=== PATIENT | male | born 1960 | race Caucasian/White ===

== ENCOUNTER 2022-08-05 13:17 | Outpatient (REF) | payer BC, SELFPAY | END 2022-08-05 13:18 | disposition home or self-care (01) | LOC: HO.BBR 13:17 | PROVIDERS: Visit Provider Internal Medicine Gastroenterology | DX: Z13.89 Encounter for screening for other disorder (principal) ==

== ENCOUNTER 2023-02-03 13:50 | Outpatient (REF) | payer BC, SELFPAY | END 2023-02-03 13:51 | disposition home or self-care (01) | LOC: HO.BBR 13:50 | PROVIDERS: Visit Provider Internal Medicine Gastroenterology | DX: Z13.89 Encounter for screening for other disorder (principal) ==

== ENCOUNTER 2023-08-18 10:45 | Outpatient (REF) | payer OTHER, SELFPAY | END 2023-08-18 10:46 | disposition home or self-care (01) | LOC: HO.BBR 10:45 | PROVIDERS: PCP Internal Medicine; Visit Provider Internal Medicine Gastroenterology | DX: Z13.89 Encounter for screening for other disorder (principal) ==

== ENCOUNTER 2024-02-23 11:06 | Outpatient (REF) | payer OTHER, SELFPAY | END 2024-02-23 11:07 | disposition home or self-care (01) | LOC: HO.BBR 11:06 | PROVIDERS: PCP Internal Medicine; Visit Provider Internal Medicine Gastroenterology | DX: Z13.89 Encounter for screening for other disorder (principal) ==

== ENCOUNTER 2024-08-31 14:35 | Outpatient (REF) | payer OTHER, SELFPAY ==
--- OUTSIDE RECORDS SUMMARY | 2024-08-31 16:12 | XMS_ITS | Clinical Summary ---
Author Organization [facility] Address [address] [facility] [address] [place] [address] Phone Care Team Providers Care Visitor Service Assistant Name Role Phone Shan Pastrana MD Primary Care Provider Allergies No known active allergies Medications amLODIPine (NORVASC) 10 MG tabletIndication s:Stage 3b chronic kidney disease (HCC),Hypertensi on,Microscopic hematuria,Vitami n D deficiency due to chronic kidney disease,Benign prostatic hyperplasia Take 1 tablet (10 mg total) by mouth 1 (one) time each day 90 tablet 3 4 11/16/19 25 Active losartan (Cozaar) 25 MG tabletIndication s:Stage 3b chronic kidney disease (HCC),Hypertensi on,Microscopic hematuria,Vitami n D deficiency due to chronic kidney disease,Benign prostatic hyperplasia Take 1 tablet (25 mg total) by mouth 1 (one) time each day 90 tablet 3 4 11/16/19 25 Active tamsulosin (FLOMAX) 0.4 MG 24 hr capsuleIndicatio ns:Stage 3b chronic kidney disease (HCC),Hypertensi on,Microscopic hematuria,Vitami n D deficiency due to chronic kidney disease,Benign prostatic hyperplasia Take 2 capsules (0.8 mg total) by mouth 1 (one) time each day 180 capsule 3 4 Active Active Problems Problem Noted Date Diagnosed Date Vitamin D deficiency due to chronic kidney disea se 11/16/2023 Microscopic hematuria 11/16/2023 Benign prostatic hyperplasia 05/25/2023 Campylobacter colitis 05/25/2023 Chronic eczema 05/25/2023 Hypertensive chronic kidney disease 05/25/2023 Degeneration of intervertebral disc 05/25/2023 H/O: dislocated shoulder 05/25/2023 Dyslipidemia 05/25/2023 Hypertension 05/25/2023 Hemochromatosis 05/25/2023 Stage 3b chronic kidney disease Acute kidney failure Resolved Problems Problem Noted Date Diagnosed Date Resolved Date Type 2 diabetes mellitus with hyperglycemia 05/25/2023 06/03/2023 Diabetes mellitus without me ntion of complication, type II or unspecified type, not stated as uncontrolled 06/03/2023 Encounters Date Type Department Care Team Description 07/02/2024 Office Communication [facility] [address] [place] [address] Liza Hernandez ARNP 07/02/2024 Refill [facility] [address] [place] [phone] Liza Hernandez ARNP Vitamin D deficiency due to chronic kidney disease from Last 3 Months Social History Tobacco Use Types Packs/Day Years Used Date Smoking Tobacco: Never Smokeless Tobacco: Never Tobacco Cessation:Counseling Given: Not Answered Alcohol Use Standard Drinks/Week Comments Never 0 (1 standard drink = 0.6 oz pur e alcohol) Sex and Gender Information Value Date Recorded Sex Assigned at Not on file Legal Sex Male 3:13 PM EST Gender Identity Not on file Sexual Orientation Not on file Last Filed Vital Signs Vital Sign Reading Time Taken Comments Blood Pressure 102/70 11/16/2023 10:38 AM EDT Pulse 66 11/16/2023 10:38 AM EDT Temperature - - Respiratory Rate - - Oxygen Saturation 97% 07/04/2023 10:01 AM EST Inhaled Oxygen Concentration - - Weight 73.5 kg (162 lb) 11/16/2023 10:38 AM EDT Height - - Body Mass Index - - Plan of Treatment Health Maintenance Due Date Last Done Comments Pneumococcal Vaccine: 65+ Ye ars (1 of 2 - PCV) 1964 Colorectal Cancer Screening: Annual FOBT 2007 Colorectal Cancer Screening: Colonoscopy 2007 Colorectal Cancer Screening: Sigmoidoscopy 2007 Influenza Vaccine (Season Ended) 2025 Hepatitis B Vaccine Aged Out No longe r eligible based on patient's age to complete this topic Insurance GENERIC COMMERCIAL GENERIC COMMERCIAL Care Teams Visitor Service Assistant Relationship Specialty Start Date End Date Shan Pastrana MD [address] [place], [place] PCP - General Internal Medicine 05/18/23
--- OUTSIDE RECORDS SUMMARY | 2024-08-31 16:12 | XMS_ITS ---
Author Name [facility] Organization Unknown History of Medication Use Medication Directions Dispensed Refills Start Date End Date Stat us tamsulosinTake (oral)[id number] frequency recordedoralNo set duration recordedNo set duration amount recordedactive0.4mg 11/16/2023 active sildenafiLTake (oral)[id number] frequency recordedoralNo set duration recordedNo set duration amount ltljcpetyzztng231ts 11/02/2023 active Cheratussin ACTakeNo date recordedNo form recordedNo frequency recordedNo route recordedNo set duration recordedNo set duration amount recordedsuspendedNo dosage strength recordedNo dosage strength units of measure recorded suspended doxazosinTake (oral)[id number] frequency recordedoralNo set duration recordedNo set duration amount ofwrymkwceewlneed1kw 03/28/2023 suspend ed ergocalciferol (rita min D2)Take (oral)[id number] frequency recordedoralNo set duration recordedNo set duration amount recordedsuspended1,250 mcg(50,000 unit) 07/04/2023 suspended amLODIPineTake (oral)[id number] frequency recordedoralNo set duration recordedNo set duration amount chllukfcslvytx53qx 06/26/2023 active losartanTake (oral)[id number] frequency recordedoralNo set duration recordedNo set duration amount bmqiprjzbdqdum98cy 07/04/2023 active Problems Problem Status Onset Date Problem Type Date of Resoluti on Source Hypertension active ProblemAct [facility]_PHY SONE Impacted cerumen, left ear active 2023-12-06 ProblemAct [facility]_PHYSONE Benign prostatic hyperplasia without lower urinary tract symptoms active ProblemAct CT_PHYSONE Encounters Encounter Type Encounter Reason Primary Diagnosis Location Date Ambulatory [facility] 12/06/2023 Care Team Organization Name Specialty Phone Email Start Date End Da te [facility] Not Found Primary Care 12/06/2023 [facility] Not Found Primary Care 12/06/2023
--- OUTSIDE RECORDS SUMMARY | 2024-08-31 16:12 | XMS_ITS | Patient Health Record ---
Author Organization [facility] - So [facility] Address [address] [place] [address] Care Team Providers Care Liquor Bridge Operator Helper Name Role Phone Ani Alfredo Unavailable [phone] Allergies No Known Allergies Reason For Referral No Information Medications Medication SIG (Take, Route, Frequency, Duration) Notes Start Date End Date Status doxazosin Active amLODIPine Active Plan Of Treatment No Information Insurance Providers Payer Name Payer Address Payer Phone Subscriber Number Group Number Insured Name Patient Relationship to Insured Coverage Start Date Coverage End Date BCBS/PP [address] [place] [address] [id number] Collins Valdovinos Self - patient is the insured Medical (General) History Medical History History ICD Code High Blood Pressure cerumen impactions Surgical History Surgery Date(Month/Year) Appendectomy
--- OUTSIDE RECORDS SUMMARY | 2024-08-31 16:12 | XMS_ITS | Encounter Summary ---
Author Organization [facility] Address [address] [address] Phone Care Team Providers Care Oracle Ebs Developer Name Role Phone Shan Pastrana MD Primary Care Provider Encounter Details Date Type Department Care Team (Late st Contact Info) Description 07/02/2024 Office Communication [facility] [address] [phone] Liza Hernandez ARNP [address] [phone] Social History Tobacco Use Types Packs/Day Years Used Date Smoking Tobacco: Never Smokeless Tobacco: Never Alcohol Use Standard Drinks/Week Comments Never 0 (1 standard drink = 0.6 oz pur e alcohol) Sex and Gender Information Value Date Recorded Sex Assigned at Not on file Legal Sex Male 3:13 PM EST Gender Identity Not on file Sexual Orientation Not on file documented as of this encounter Plan of Treatment Not on file documented as of this encounter Visit Diagnoses Not on filedocumented in this encounter Care Teams Oracle Ebs Developer Relationship Specialty Start Date End Date Shan Pastrana MD [address] [place], [place] PCP - General Internal Medicine 05/18/23 documented as of this encounter
--- OUTSIDE RECORDS SUMMARY | 2024-08-31 16:12 | XMS_ITS | Encounter Summary ---
Author Organization [facility] Address [address] [facility] [address] [place] [address] Phone Care Team Providers Care Admissions Rn Name Role Phone Shan Pastrana MD Primary Care Provider [phone] Reason for Visit * Reason Comments Med Refill Encounter Details Date Type Department Care Team ([facility] st Contact Info) Description 07/02/2024 Refill [facility] [address] [facility] [address] [place] [phone] Liza Hernandez ARNP [address] [facility] [address] [place] [phone] Vitamin D deficiency due to chronic kidney disease Social History Tobacco Use Types Packs/Day Years [...] documented as of this encounter Visit Diagnoses Diagnosis Vitamin D deficiency due to chronic kidney disease documented in this encounter Care Teams Admissions Rn Relationship Specialty Start Date End Date Shan Pastrana MD [address] [place], [place] PCP - General Internal Medicine 05/18/23 documented as of this encounter
--- OUTSIDE RECORDS SUMMARY | 2024-08-31 16:12 | XMS_ITS | Clinical Summary ---
Author Organization [address] [facility] Address [address] [place] [address] Phone Care Team Providers Care Hair Spinner Name Role Phone Shan Pastrana MD Primary Care Provider [phone] Encounters Date Type Department Care Team Description 08/24/2024 Telephone Gastroenterology - [address] [facility] [address] [place] [address] Saurav Austin [place] Results 08/14/2024 Telephone Gastroenterology - [address] [phone] Dudley Torres MD labwork from Last 3 Months Social History Tobacco Use Types Packs/Day Years Used Date Smoking Tobacco: Never Assessed Sex and Gender Information Value Date Recorded Sex Assigned at Not on file Legal Sex Male 3:42 PM EDT Gender Identity Not on file Sexual Orientation Not on file Plan of Treatment Health Maintenance Due Date Last Done Comments Pneumococcal Vaccine: 50+ Years (1 of 1 - PCV) 2008 Zoster Vaccines (1 of 2) 2008 DTaP,Tdap,and Td Vaccines (2 - Td or Tdap) 08/14/2023 08/13/2013 COVID-19 Vaccine (3 - 2023-2 5 season) 2024 09/06/2020, 1960 Influenza Vaccine (#1) 2024 4, 03/30/2013, 07/04/2012 Abdominal Aortic Aneurysm (AAA) Screen 03/25/2024 Cholesterol Screening (Lipid Panel) 03/25/2024 Colorectal Cancer Screening: Colonoscopy 03/25/2024 Depression Screening 03/25/2024 Falls Risk Assessment 03/25/2024 Hepatitis C Screening 03/25/2024 Social Influencers of Health Screening 03/25/2024 Hypertension/CHF/CAD Annual BMP Blood Test 08/23/2025 08/23/2024 RSV Immunization Adult Patients (1 - 1-dose 75+ series) 2033 HIB Vaccines Aged Out No longer eligi ble based on patient's age to complete this topic HPV Vaccines Aged Out No longer eligi ble based on patient's age to complete this topic Hepatitis A Vaccines Aged Out No long er eligible based on patient's age to complete this topic Hepatitis B Vaccines Aged Out No long er eligible based on patient's age to complete this topic IPV Vaccines Aged Out No longer eligi ble based on patient's age to complete this topic MMR Vaccines Aged Out No longer eligi ble based on patient's age to complete this topic Meningococcal ACWY Vaccine Aged Out N o longer eligible based on patient's age to complete this topic Meningococcal B Vacine Aged Out No lo nger eligible based on patient's age to complete this topic RSV Immunization Patients Under 20 months Aged Out No longer eligible b ased on patient's age to complete this topic Varicella Vaccines Aged Out No longer eligible based on patient's age to complete this topic Procedures Procedure Name Priority Date/Time Associated Diagnosis Comments CBC WITH AUTO DIFFERENTIAL Routine 08/23/2024 10:47 AM EDT Hemochromatosis, unspecified hemochromatosis type CBC AND DIFFERENTIAL Routine 08/23/2024 10:47 AM EDT Hemochromatosis, unspecified hemochromatosis type FERRITIN Routine 08/23/2024 10:47 AM EDT Hemochromatosis, unspecified hemochromatosis type COMPREHENSIVE METABOLIC PANEL Routine 08/23/2024 10:47 AM EDT Hemochromatosis, unspecified hemochromatosis type IRON AND TIBC Routine 08/23/2024 10:47 AM EDT Hemochromatosis, unspecified hemochromatosis type from Last 3 Months Results * CBC auto differential (08/23/2024 10:47 AM EDT) WBC 4.9 4.8 - 10.8 K/[facility] LAB HEMETOLOGY METHOD 08/23/2024 12:44 PM EDT [facility] RBC 4.90 4.50 - 5.50 M/mcL LAB HEMETOLOGY METHOD 08/23/2024 12:44 PM EDT [facility] Hemoglobin 15.5 13.5 - 17.5 g/dL LAB HEMETOLOGY METHOD 08/23/2024 12:44 PM EDT [facility] Hematocrit 46.8 42.0 - 54.0 % LAB HEMETOLOGY METHOD 08/23/2024 12:44 PM EDT [facility] MCV 94.7 79.0 - 98.0 FL LAB [facility]23[facility]24 12[facility] MCH 31.4 27.0 - 32.0 pcg LAB HEMETOLOGY METHOD 08/23/2024 12:44 PM [facility] MCHC 33.1 32.0 - 37.0 g/dL LAB HEMETOLOGY METHOD 08/23/2024 12:[facility] RDW 13.8 11.0 - 15.0 % LAB HEMETOLOGY METHOD 08/23/2024 12:44 PM [facility] Platelets 216 130 - 400 K/mcL LAB HEMETOLOGY METHOD 08/23/2024 12:44 PM [facility] MPV 9.2 7.0 - 11.0 FL LAB HEMETOLOGY METHOD 08/23/2024 12:44 PM EDT [facility] NRBC 0.0 <1.0 % LAB HEMETOLOGY METHOD 08/23/2024 12:44 PM EDT [facility] NRBC Absolute 0.00 <0.10 K/mcL LAB HEMETOLOGY METHOD 08/23/2024 12:44 PM [facility] Neutrophils Relative 66.8 % LAB HEMETOLOGY METHOD 08/23/2024 12:44 PM [facility] Lymphocytes Relative 20.6 % LAB HEMETOLOGY METHOD 08/23/2024 12:44 PM EDT [facility] Monocytes Relative 7.5 % LAB HEMETOLOGY METHOD 08/23/2024 12:44 PM EDT [facility] Eosinophils Relative 4.1 % LAB HEMETOLOGY METHOD 08/23/2024 12:44 PM EDT [facility] Basophils Relative 0.8 % LAB HEMETOLOGY METHOD 08/23/2024 12:44 PM EDT [facility] Immature Granulocytes Relative 0.2 % LAB HEMETOLOGY METHOD 08/23/2024 12:44 PM EDT [facility] Neutrophils Absolute 3.28 1.50 - 7.00 K/mcL LAB HEMETOLOGY METHOD 08/23/2024 12:44 [facility] Lymphocytes Absolute 1.01 1.00 - 5.00 K/mcL LAB HEMETOLOGY METHOD 08/23/2024 12:44 PM EDT [facility] Monocytes Absolute 0.37 0.20 - 1.00 K/mcL LAB HEMETOLOGY METHOD 08/23/2024 12:44 PM EDT [facility] Eosinophils Absolute 0.20 0.00 - 0.50 K/mcL LAB HEMETOLOGY METHOD 08/23/2024 12:44 PM EDT [facility] Basophils Absolute 0.04 0.00 - 0.20 K/mcL LAB HEMETOLOGY METHOD 08/23/2024 12:44 PM EDT [facility] Immature Granulocytes Absolute 0.01 0.00 - 0.03 K/mcL LAB HEMETOLOGY METHOD 08/23/2024 12:44 PM [facility] Blood Venous blood specimen / Unknown Venipuncture / Unknown 08/23/2024 10:47 AM EDT 08/23/2024 12:09 PM EDT us Dudley Torres MD LAB BLOOD ORDERABLES Final Re sult Performing Organization Address [facility]/ZIP Co de Phone Number [facility] [address] [place] [address], [place] [phone] * (ABNORMAL) Iron and TIBC (08/23/2024 10:47 AM EDT) Iron 103 50 - 160 mcg/dL LAB CHEMISTRY METHOD 08/23/2024 1:53 PM EDT [facility] TIBC 248(L) 250 - 450 mcg/dL LAB CHEMISTRY METHOD 08/23/2024 1:53 PM EDT [facility] Iron Saturation 42 20 - 50 % LAB CHEMISTRY METHOD 08/23/2024 1:53 PM EDT [facility] Blood Venous blood specimen / Unknown Venipuncture / Unknown 08/23/2024 10:47 AM EDT 08/23/2024 12:09 PM EDT us Dudley Torres MD LAB BLOOD ORDERABLES Final Re sult Performing Organization Address [facility] Co de Phone Number [facility] [address] [place] [address], [place] [phone] * Ferritin (08/23/2024 10:47 AM EDT) Ferritin 58 26 - 388 ng/mL LAB CHEMISTRY METHOD 08/23/2024 1:53 PM EDT [facility] Blood Venous blood specimen / Unknown Venipuncture / Unknown 08/23/2024 10:47 AM EDT 08/23/2024 12:09 PM EDT us Dudley Torres MD LAB BLOOD ORDERABLES Final Re sult Performing Organization Address City/[facility]/ZIP Co de Phone Number [facility] [address] [place] [address], [place] [phone] * (ABNORMAL) Comprehensive metabolic panel (08/23/2024 10:47 AM EDT) Sodium 139 133 - 145 mmol/L LAB CHEMISTRY METHOD 08/23/2024 1:53 PM [facility] Potassium 4.7 3.5 - 5.5 mmol/L LAB CHEMISTRY METHOD 08/23/2024 1:53 PM [facility] Chloride 110 96 - 110 mmol/L LAB CHEMISTRY METHOD 08/23/2024 1:53 PM [facility] CO2 25 21 - 32 mmol/L LAB CHEMISTRY METHOD 08/23/2024 1:53 PM [facility] Anion Gap 4 3 - 11 LAB CHEMISTRY METHOD 08/23/2024 1:53 PM [facility] Glucose 102(H) 70 - 100 mg/dL LAB CHEMISTRY METHOD 08/23/2024 1:53 PM [facility] BUN 26(H) 5 - 25 mg/dL LAB CHEMISTRY METHOD 08/23/2024 1:53 PM [facility] Creatinine 1.62(H) 0.70 - 1.30 mg/dL LAB CHEMISTRY METHOD 08/23/2024 1:53 PM [facility] eGFR 47(L) >=60 mL/min/1. 73m2 LAB CHEMISTRY METHOD 08/23/2024 1:53 PM [facility] Comment:Calculation based on the??Chronic Kidney Disease Epidemiology Collaboration (CKD-EPI) equation refit??without adjustment for race. BUN/Creatinine Ratio 16.0 LAB CHEMISTRY METHOD 08/23/2024 1:53 PM [facility] Calcium 8.9 8.5 - 10.5 mg/dL LAB CHEMISTRY METHOD 08/23/2024 1:53 PM [facility] AST (SGOT) 9(L) 10 - 42 unit/L LAB CHEMISTRY METHOD 08/23/2024 1:53 PM [facility] ALT (SGPT) 16 10 - 60 unit/L LAB CHEMISTRY METHOD 08/23/2024 1:53 PM EDT [facility] Alkaline Phosphatase 73 42 - 121 unit/L LAB CHEMISTRY METHOD 08/23/2024 1:53 PM EDT [facility] Total Protein 7.4 6.0 - 8.0 g/dL LAB CHEMISTRY METHOD 08/23/2024 1:53 PM EDT [facility] Albumin 3.7 3.2 - 5.0 g/dL LAB CHEMISTRY METHOD 08/23/2024 1:53 PM EDT [facility] Total Bilirubin 0.5 0.0 - 1.4 mg/dL LAB CHEMISTRY METHOD 08/23/2024 1:53 PM EDT [facility] Blood Venous blood specimen / Unknown Venipuncture / Unknown 08/23/2024 10:47 AM EDT 08/23/2024 12:09 PM EDT us Dudley Torres MD LAB BLOOD ORDERABLES Final Re sult [facility] [address] [place] [address], [place] [phone] from Last 3 Months Insurance [place] [address] Care Teams Hair Spinner Relationship Specialty Start Date End Date Shan Pastrana MD [address] [place] [address] PCP - General Internal Medicine 08/24/24
== END 2024-08-31 14:36 | disposition home or self-care (01) ==
LOC: HO.BBR 14:35
PROVIDERS: PCP Internal Medicine; Visit Provider Internal Medicine Gastroenterology
DX: Z13.89 Encounter for screening for other disorder (principal)

== ENCOUNTER 2025-04-02 14:51 | Outpatient (REF) | payer OTHER, SELFPAY ==
--- OUTSIDE RECORDS SUMMARY | 2025-04-02 17:55 | XMS_ITS | Patient Health Record ---
Author Organization [facility] Address [address] [place] [address] Care Team Providers Care Whiskey Regauger Name Role Phone Lev Smith Primary Care Provider Allergies No Known Allergies Reason For Referral No Information Medications Medication SIG (Take, Route, Frequency, Duration) Notes Start Date End Date Status amLODIPine Besylate 10 MG TAKE 1 TABLET BY MOUTH EVERY DAY FOR 90 DAYS; Duration: 90 Active Doxazosin Mesylate 4 MG TAKE 1 TABLET ON E TIME DAILY; Duration: 90 Active Immunizations Vaccine Route Administration Date Status Comme nts Flu Vaccine IM Intramuscular 05/09/2020 Administ ered Problems Problem Type SNOMED Code ICD Code Onset Dates Problem Status W/U Status Risk Notes Problem Information temporarily unavailable Vitamin D deficiency, unspecified (E55.9) Active confirmed Problem Information temporarily unavailable Hereditary hemochromatosis (E83.110) Active confirmed Problem Information temporarily unavailable Benign prostatic hyperplasia with lower urinary tract symptoms (N40.1) Active confirmed Problem Information temporarily unavailable Essential hypertension (I10) Active confirmed Problem Information temporarily unavailable Hypertriglyceridemia (E78.1) Active confirmed Problem Information temporarily unavailable Basal cell carcinoma (BCC) of skin of nose (C44.311) Active confirmed Problem Information temporarily unavailable Hereditary hemochromatosis (E83.110) Active confirmed Problem Information temporarily unavailable Other hemochromatosis (E83.118) Active confirmed Plan Of Treatment Pending Test Test Name Order Date IRON, TIBC AND FERRITIN PANEL 04/03/2021 IRON, TIBC AND FERRITIN PANEL 12/11/2020 IRON, TIBC AND FERRITIN PANEL 12/11/2020 MICROALBUMIN, RANDOM URINE (W/CREATININE ) 04/05/2022 LIPID PANEL WITH REFLEX TO DIRECT LDL LIPID PANEL WITH REFLEX TO DIRECT LDL COMPREHENSIVE METABOLIC PANEL 04/03/2021 COMPREHENSIVE METABOLIC PANEL 04/05/2022 COMPREHENSIVE METABOLIC PANEL 05/09/2020 COMPREHENSIVE METABOLIC PANEL 12/11/2020 CBC (INCLUDES DIFF/PLT) 04/05/2022 CBC (INCLUDES DIFF/PLT) 04/03/2021 HEMOGLOBIN A1c 04/05/2022 HEMOGLOBIN A1c 05/09/2020 PSA (FREE AND TOTAL) 04/05/2022 PSA, TOTAL 04/03/2021 PSA, TOTAL WITH REFLEX TO PSA, FREE 11/27 TSH W/REFLEX TO FT4 04/03/2021 TSH W/REFLEX TO FT4 04/05/2022 VITAMIN D,25-OH,TOTAL,IA 04/05/2022 VITAMIN D,25-OH,TOTAL,IA 04/03/2021 Insurance Providers Payer Name Payer Address Payer Phone Subscriber Number Group Number Insured Name Patient Relationship to Insured Coverage Start Date Coverage End Date BCBS-PP [address] [place] [address] [id number] Collins Valdovinos Self - patient is the insured Medical (General) History Medical History History ICD Code hematochromatosis HTN elevated PSA-11 (04/2020) Decreased kidney function Surgical History Surgery Date(Month/Year) appendectomy 1999
--- OUTSIDE RECORDS SUMMARY | 2025-04-02 17:55 | XMS_ITS | Clinical Summary ---
Author Organization [address] [facility] Address [address] [place] [address] Phone Care Team Providers Care Dictaphone Mechanic Name Role Phone Shan Pastrana MD Primary Care Provider [phone] Social History Tobacco Use Types Packs/Day Years Used Date Smoking Tobacco: Never Assessed Sex and Gender Information Value Date Recorded Sex Assigned at Not on file Legal Sex Male 3:42 PM EDT Gender Identity Not on file Sexual Orientation Not on file Plan of Treatment Health Maintenance Due Date Last Done Comments Colorectal Cancer Screening: Colonoscopy 1960 Pneumococcal Vaccine: 50+ Years (1 of 1 - PCV) 2008 Zoster Vaccines (1 of 2) 2008 DTaP,Tdap,and Td Vaccines (2 - Td or Tdap) 08/14/2023 08/13/2013 Abdominal Aortic Aneurysm (AAA) Screen 03/25/2024 Cholesterol Screening (Lipid Panel) 03/25/2024 Falls Risk Assessment 03/25/2024 Hepatitis C Screening 03/25/2024 Social Influencers of Health Screening 03/25/2024 Depression Screening 05/30/2024 COVID-19 Vaccine (3 - 2024-2 6 season) 2025 09/06/2020, 1960 Influenza Vaccine (#1) 2025 4, 03/30/2013, 07/04/2012 Hypertension/CHF/CAD Annual BMP Blood Test 08/23/2025 08/23/2024 [...] age to complete this topic Meningococcal B Vaccine Aged Out No l onger eligible based on patient's age to complete this topic RSV Immunization Patients Under 20 months Aged Out No longer eligible b ased on patient's age to complete this topic Varicella Vaccines Aged Out No longer eligible based on patient's age to complete this topic Procedures Procedure Name Priority Date/Time Associated Diagnosis Comments COMPREHENSIVE METABOLIC PANEL Routine 08/23/2024 10:47 AM EDT Hemochromatosis, unspecified hemochromatosis type from Last 3 Months or Most Recently Relevant to Health Maintenance Results * (ABNORMAL) Comprehensive metabolic panel (08/23/2024 10:47 AM EDT) Sodium 139 133 - 145 mmol/L LAB CHEMISTRY METHOD 08/23/2024 1:53 PM [facility] Potassium 4.7 3.5 - 5.5 mmol/L LAB CHEMISTRY METHOD 08/23/2024 1:53 PM [facility] Chloride 110 96 - 110 mmol/L LAB CHEMISTRY METHOD 08/23/2024 1:53 PM [facility] CO2 25 21 - 32 mmol/L LAB CHEMISTRY METHOD 08/23/2024 1:53 PM [facility] Anion Gap 4 3 - 11 LAB CHEMISTRY METHOD 08/23/2024 1:53 PM [facility] Glucose 102(H) 70 - 100 mg/dL LAB CHEMISTRY METHOD 08/23/2024 1:53 PM [facility] BUN 26(H) 5 - 25 mg/dL LAB CHEMISTRY METHOD 08/23/2024 1:53 PM [facility] Creatinine 1.62(H) 0.70 - 1.30 mg/dL LAB CHEMISTRY METHOD 08/23/2024 1:53 PM [facility] eGFR 47(L) >=60 mL/min/1. 73m2 LAB CHEMISTRY METHOD 08/23/2024 1:53 PM [facility] Comment:Calculation based on the Chronic Kidney Disease Epidemiology Collaboration (CKD-EPI) equation refit without adjustment for race. BUN/Creatinine Ratio 16.0 LAB CHEMISTRY METHOD 08/23/2024 1:53 PM [facility] Calcium 8.9 8.5 - 10.5 mg/dL LAB CHEMISTRY METHOD 08/23/2024 1:53 PM [facility] AST (SGOT) 9(L) 10 - 42 unit/L LAB CHEMISTRY METHOD 08/23/2024 1:53 PM [facility] ALT (SGPT) 16 10 - 60 unit/L LAB CHEMISTRY METHOD 08/23/2024 1:53 PM [facility] Alkaline Phosphatase 73 42 - 121 unit/L LAB CHEMISTRY METHOD 08/23/2024 1:53 PM [facility] Total Protein 7.4 6.0 - 8.0 g/dL LAB CHEMISTRY METHOD 08/23/2024 1:53 PM [facility] Albumin 3.7 3.2 - 5.0 g/dL LAB CHEMISTRY METHOD 08/23/2024 1:53 PM [facility] Total Bilirubin 0.5 0.0 - 1.4 mg/dL LAB CHEMISTRY METHOD 08/23/2024 1:53 PM [facility] Blood Venous blood specimen / Unknown Venipuncture / Unknown 08/23/2024 10:47 AM EDT 08/23/2024 12:09 PM EDT us Dudley Torres MD LAB BLOOD ORDERABLES Final Re sult [facility] [address] [place], [place] [address] [phone] from Last 3 Months or Most Recently Relevant to Health Maintenance Insurance MEDICARE [employer] Care Teams Dictaphone Mechanic Relationship Specialty Start Date End Date Shan Pastrana MD [address] [place] [address] PCP - General Internal Medicine 08/24/24
--- OUTSIDE RECORDS SUMMARY | 2025-04-02 17:55 | XMS_ITS | Clinical Summary ---
Author Organization [address] Address [address] [place] [id number] Phone Care Team Providers Care Temperature Inspector Name Role Phone Shan Pastrana MD Primary Care Provider [phone] Allergies No known active allergies Medications amLODIPine (NORVASC) 10 mg tablet Take 1 tablet (10 mg total) by mouth daily. Active losartan (COZAAR) 25 mg tablet Take 1 tablet (25 mg total) by mouth daily. Active tamsulosin (FLOMAX) 0.4 mg 24 hr capsule take 2 capsules by mouth 1 time each day. Active Active Problems Problem Noted Date Diagnosed Date Ear fullness, bilateral 10/31/2024 Impacted cerumen of left ear 10/31/2024 Barotrauma, initial encounter 10/31/2024 Family History Relation Name Status Comments Father Maternal Grandfather Maternal Grandmother Mother Paternal Grandfather Paternal Grandmother Social History Tobacco Use Types Packs/Day Years Used Date Smoking Tobacco: Never Smokeless Tobacco: Never Tobacco Cessation:Counseling Given: Not Answered Alcohol Use Standard Drinks/Week Comments Not Currently 0 (1 standard drink = 0.6 oz pur e alcohol) Sex and Gender Information Value Date Recorded Sex Assigned at Not on file Legal Sex Male 4:12 PM EDT Gender Identity Not on file Sexual Orientation Not on file Last Filed Vital Signs Vital Sign Reading Time Taken Comments Blood Pressure 124/85 10/31/2024 5:36 PM EDT Pulse 67 10/31/2024 5:36 PM EDT Temperature 36.4 C (97.6 F) 10/31/2024 5:36 PM EDT Respiratory Rate 18 10/31/2024 5:36 PM EDT Oxygen Saturation 97% 10/31/2024 5:36 PM EDT Inhaled Oxygen Concentration - - Weight 70.3 kg (155 lb) 10/31/2024 5:36 PM EDT Height 185.4 cm (6' 1 ) 10/31/2024 5:36 PM EDT Body Mass Index 20.45 10/31/2024 5:36 PM EDT Plan of Treatment Health Maintenance Due Date Last Done Comments HIV screening 1971 Hepatitis C screening 1976 Lipid disorder screening 1998 Colon cancer screening, Colonoscopy 2003 Diabetes screening 2003 Pneumococcal Vaccine (50+ years) (1 of 1 - PCV) 2008 Shingles vaccine (Shingrix) (1 of 2 - Shingrix (RZV) 2 Dose Standard Series) 2008 Tetanus adult (Td q 10,TDAP once) 08/14/2023 08/13/2013 Influenza vaccine 12/28/2024 02/18/2014, 03/30/2013, 07/04/2012 Covid-19 vaccine series (3 - season) 2025 09/06/2020, 1960 RSV Immunization (1 - 1-dose 75+ series) 2033 Meningococcal B Vaccine Aged Out No l onger eligible based on patient's age to complete this topic Meningococcal Vaccine Aged Out No nawaf miller eligible based on patient's age to complete this topic Care Teams Temperature Inspector Relationship Specialty Start Date End Date Shan Pastrana MD [address] [place] [address] PCP - General Internal Medicine 10/31/24
--- OUTSIDE RECORDS SUMMARY | 2025-04-02 17:56 | XMS_ITS | Patient Health Record ---
Author Organization [facility] Address [address] [place] [address] Care Team Providers Care Janitorial Supervisor Name Role Phone Ani Alfredo Unavailable [phone] Allergies No Known Allergies Reason For Referral No Information Medications Medication SIG (Take, Route, Frequency, Duration) Notes Start Date End Date Status doxazosin Active amLODIPine Active Plan Of Treatment No Information Insurance Providers Payer Name Payer Address Payer Phone Subscriber Number Group Number Insured Name Patient Relationship to Insured Coverage Start Date Coverage End Date BCBS/PP [address] [place] [address] [id number] Collins Valdovinos Self - patient is the insured Medical (General) History Medical History History ICD Code High Blood Pressure cerumen impactions Surgical History Surgery Date(Month/Year) Appendectomy
== END 2025-04-02 14:52 | disposition home or self-care (01) ==
LOC: HO.BBR 14:51
PROVIDERS: PCP Internal Medicine; Visit Provider Internal Medicine Gastroenterology
DX: Z13.89 Encounter for screening for other disorder (principal)